=== PATIENT | female | born 1950 | race Caucasian/White ===

== ENCOUNTER 2019-12-14 14:26 | Inpatient (IN) ==
--- NOTE | 2019-12-14 14:36 | DR.NAUSEAF ---
HPI Time Seen Time Seen by Provider: 12/14/19 14:35 Primary Care Physician Primary Care Physician: DORENE VILLEDA Complaints Chief Complaint:: [place] BRINGS PT. IN WITH C/O VOMITING COFFEE GROUND EMESIS X 3 EPISODES TODAY. PT. HAS A HX. OF GI BLEED. PT. C/O ABDOMINAL PAIN. PT. WAS RECENTLY HOSPITALIZED IN [facility] WITH GI BLEED AND HAD AN EGD WHICH REVEALED EROSIVE GASTRITIS. PT. HAS BEEN ON PROTONIX 40MG PO DAILY. COVID-19 Coronavirus risk:travel/contact w/high risk person: No Has patient experienced Coronavirus symptoms: Yes Coronavirus symptoms experienced: Coughing and Shortness of Breath Reviewed Nurses Notes Reviewed: Yes Source History Provided: Patient and EMS Mode of Arrival Mode of Arrival: EMS Timing Onset of Chief Complaint: 12/14/19 Context Onset: Spontaneous Recent: denies Travel and Contact Exposure Possible Ingestion: Unknown History of: None Quality Quality: Coffee Grounds PMH PMH Past Medical History: Yes Past Medical History: COPD, Dementia, Depression, Gout and Hypertension Past Medical History Comment: GI BLEED, schizaffective disorder, chronic pain Past Surgical History: Yes Surgical History: Unknown Family History History of Family Medical Conditions: No Social History Does patient currently use any type of tobacco product: No Have you used tobacco products in the last 12 months: No Type of Tobacco Use: None Does any household member use tobacco: No Alcohol Use: None Do you use any recreational Drugs:: No Lives With: Family Lives Where: Home Travel Risk Coronavirus risk:travel/contact w/high risk person: No Has patient experienced Coronavirus symptoms: Yes Coronavirus symptoms experienced: Coughing and Shortness of Breath Infectious screening In the last 2 months have you had wt loss of >10#?: NO Have you had fever, night sweats or hemotysis?: No Have you traveled outside the country in the last 6 months?: No Isolation: Droplet ROS Review of Systems Constitutional: No Symptoms Reported Eyes: No Symptoms Reported ENTM: No Symptoms Reported Respiratoy: No Symptoms Reported Cardiovascular: No Symptoms Reported Gastrointestinal/Abdominal: Abdominal Pain, Nausea and Vomiting Genitourinary: No Symptoms Reported Neurological: No Symptoms Reported Musculoskeletal: No Symptoms Reported Integumentary: No Symptoms Reported Hematologic/Lymphatic: No Symptoms Reported Endocrine: No Symptoms Reported Psychiatric: Other (schizoaffective) All Other Systems: Reviewed and Negative PE Vital Signs Vitals: Temperature 97.5 F Pulse Rate 82 Respiratory Rate 27 Blood Pressure 85/50 O2 Sat by Pulse Oximetry 98 General Limitations: No Limitations General Appearance: Alert and In No Apparent Distress Head Head Exam: Normal Inspection, Atraumatic and Normocephalic Eyes Eye exam: Normal Appearance and EOMI ENT ENT Exam: Normal Exam and Normal Oropharynx Neck Neck Exam: Normal Inspection, Full ROM and Trachea Midline Chest Chest Inspection: Normal Inspection Respiratory Respiratory Exam: Normal Lung Sounds Bilat Respiratory Exam: Bilateral: Clear to Auscultation Cardiovascular Cardiovascular Exam: Regular Rate; negative Systolic Murmur Abdominal Exam Abdominal Exam: Normal Inspection, Soft and Tenderness; negative Distention and Guarding Abdominal Tenderness: Epigastrium Rectal Rectal Exam: Deferred External Exam: Female: Deferred : Speculum Exam (Female): Deferred : Bimanual Exam (female): Deferred Extremities Extremities Exam: Normal Inspection and Full ROM Back Back Exam: Normal Inspection Neurologic Neurological Exam: Alert and CN II-XII Intact; negative Oriented X3 Psychiatric Psychiatric Exam: Depressed Skin Skin Exam: Normal Color ROR Labs Reviewed Result Diagrams: 12/14/19 14:52 12/14/19 14:52 Laboratory: WBC 8.2 X10^3/uL (3.6-10.0) 12/14/19 14:52 RBC 3.70 X10^6/uL (3.5-5.4) 12/14/19 14:52 Hgb 10.5 g/dL (12.0-16.0) L 12/14/19 14:52 Hct 31.8 % (36.0-47.0) L 12/14/19 14:52 MCV 86.0 fL (80.0-100.0) 12/14/19 14:52 MCH 28.4 pg (27.0-34.0) 12/14/19 14:52 MCHC 33.1 g/dL (33.0-35.0) 12/14/19 14:52 RDW 19.6 % (11.6-16.5) H 12/14/19 14:52 Plt Count 220 X10^3/uL (150.0-450.0) 12/14/19 14:52 MPV 8.3 fL (7.4-11.0) 12/14/19 14:52 Neut % (Auto) 83.5 % (42.0-75.0) H 12/14/19 14:52 Lymph % (Auto) 5.5 % (21.0-51.0) L 12/14/19 14:52 [place] % (Auto) 10.7 % (0.0-13.0) 12/14/19 14:52 Eos % (Auto) 0.1 % (0.9-2.9) L 12/14/19 14:52 Baso % (Auto) 0.2 % (0.2-1.0) 12/14/19 14:52 Neut # (Auto) 6.8 x10^3/uL (2.2-4.8) H 12/14/19 14:52 Lymph # (Auto) 0.4 X10^3/uL (1.3-2.9) L 12/14/19 14:52 [place] # (Auto) 0.9 x10^3/uL (0.3-0.8) H 12/14/19 14:52 Eos # (Auto) 0.0 x10^3/uL (0.0-0.2) 12/14/19 14:52 Baso # (Auto) 0.0 X10^3/uL (0.0-0.1) 12/14/19 14:52 Absolute Nucleated RBC 0.0 /100WBC 12/14/19 14:52 Sodium 135 mmol/L (136-145) L 12/14/19 14:52 Corrected Sodium TNP 12/14/19 14:52 Potassium 4.1 mmol/L (3.5-5.1) 12/14/19 14:52 Chloride 99 mmol/L (98-107) 12/14/19 14:52 Carbon Dioxide 23.0 mmol/L (21-32) 12/14/19 14:52 BUN 34 mg/dL (7-18) H 12/14/19 14:52 Creatinine 2.85 mg/dL (0.55-1.02) H 12/14/19 14:52 Est GFR (MDRD) Af Amer 21 (>60) L 12/14/19 14:52 Est GFR (MDRD) Non-Af 17 (>60) L 12/14/19 14:52 Glucose 96 mg/dL (65-99) 12/14/19 14:52 Calcium 9.3 mg/dL (8.5-10.1) 12/14/19 14:52 Corrected Calcium 9.9 mg/dL (8.5-10.1) 12/14/19 14:52 Total Bilirubin 0.60 mg/dL (0.2-1.0) 12/14/19 14:52 AST 114 Units/L (15-37) H 12/14/19 14:52 ALT 57 Units/L (12-78) 12/14/19 14:52 Alkaline Phosphatase 77 Units/L (46-116) 12/14/19 14:52 Creatine Kinase 1387 Units/L (26-192) H 12/14/19 14:52 CK-MB (CK-2) 4.2 ng/mL (0-4.0) H* 12/14/19 14:52 CK/CKMB % Calc 0.3 % (<4) 12/14/19 14:52 Troponin I < 0.02 ng/mL (0-1.5) 12/14/19 14:52 C-Reactive Protein 63.70 mg/L (0-3.0) H 12/14/19 14:52 Total Protein 7.3 g/dL (6.4-8.2) 12/14/19 14:52 Albumin 3.3 g/dL (3.4-5.0) L 12/14/19 14:52 Globulin 4.0 g/dL (2.5-4.5) 12/14/19 14:52 Albumin/Globulin Ratio 0.8 Ratio (1.1-2.1) L 12/14/19 14:52 Specimen Type Catherized urine 12/14/19 16:30 Urine Color Yellow (YELLOW) 12/14/19 16:30 Urine Appearance Clear (CLEAR) 12/14/19 16:30 Urine pH 5.0 (5.0 - 8.0) 12/14/19 16:30 Ur Specific [place] 1.020 (1.000-1.030) 12/14/19 16:30 Urine Protein Negative (NEGATIVE) 12/14/19 16:30 Urine Glucose (UA) Negative (NEGATIVE) 12/14/19 16:30 Urine Ketones Negative (NEGATIVE) 12/14/19 16:30 Urine Occult Blood Negative (NEGATIVE) 12/14/19 16:30 Urine Nitrite Negative (NEGATIVE) 12/14/19 16:30 Urine Bilirubin Negative (NEGATIVE) 12/14/19 16:30 Urine Urobilinogen Normal (NORMAL) 12/14/19 16:30 Ur Leukocyte Esterase Negative (NEGATIVE) 12/14/19 16:30 Stool Description Fob tube 12/14/19 16:30 Stl Occult Blood (IFOB) Positive (NEGATIVE) A 12/14/19 16:30 SARS-CoV-2 (PCR) Negative (NEGATIVE) 12/14/19 16:54 XRAY XRAY Interpreted by: Radiologist X-ray Results: chest: bilateral lower lobe infiltrate Opioid Opioid Risk Tool Age (Delfino box if 16-45): No History of Preadolescent Sexual Abuse: No Total: 0 Total Score Risk Category: Low Risk Copyright: Tera RODNEY predicting aberrant behaviors
[2019-12-14] MEDS ORDERED: NS 500 ML IV 1,000 ML IV ONE (14:41)
[2019-12-14] MEDS ORDERED: PROTONIX INJ 40 MG VIAL IVP ONE (14:43)
[2019-12-14] MEDS ORDERED: ZOFRAN INJ 4 MG VIAL IVP ONE (14:44)
[2019-12-14] MEDS ORDERED: PROTONIX INJ 40 MG VIAL ONE (14:49)
[2019-12-14] MEDS ORDERED: ZOFRAN INJ 4 MG VIAL ONE (14:49)
[2019-12-14 15:15] LABS: BASOPHILS % (AUTO) 0.2 % (0.2-1.0); EOSINOPHILS % (AUTO) 0.1 % (0.9-2.9); HEMATOCRIT 31.8 % (36.0-47.0); HEMOGLOBIN 10.5 g/dL (12.0-16.0); LYMPHOCYTES # (AUTO) 0.4 X10^3/uL (1.3-2.9); LYMPHOCYTES % (AUTO) 5.5 % (21.0-51.0); MEAN CORPUSCULAR HEMOGLOBIN 28.4 pg (27.0-34.0); MEAN CORPUSCULAR HGB CONC 33.1 g/dL (33.0-35.0); MEAN PLATELET VOLUME 8.3 fL (7.4-11.0); MONOCYTES # (AUTO) 0.9 x10^3/uL (0.3-0.8); MONOCYTES % (AUTO) 10.7 % (0.0-13.0); NEUTROPHILS # (AUTO) 6.8 x10^3/uL (2.2-4.8); NEUTROPHILS % (AUTO) 83.5 % (42.0-75.0); PLATELET COUNT 220 X10^3/uL (150.0-450.0); RED CELL DISTRIBUTION WIDTH 19.6 % (11.6-16.5); WHITE BLOOD COUNT 8.2 X10^3/uL (3.6-10.0)
[2019-12-14] MEDS ORDERED: NARCAN INJ ONE (15:16)
[2019-12-14] MEDS ORDERED: NS 1000 ML 1,000 ML ONE ×2 (15:17→18:24)
[2019-12-14 15:23] LABS: BLOOD UREA NITROGEN 34 mg/dL (7-18); CALCIUM 9.3 mg/dL (8.5-10.1); CHLORIDE 99 mmol/L (98-107); CREATININE 2.85 mg/dL (0.55-1.02); SODIUM 135 mmol/L (136-145); TROPONIN I < 0.02 ng/mL (0-1.5); eGFR NON BLACK RACES 17 (>60)
[2019-12-14] MEDS ORDERED: NARCAN INJ IVP ONE (15:24)
[2019-12-14 15:43] LABS: ALANINE AMINOTRANSFERASE 57 Units/L (12-78); ALBUMIN 3.3 g/dL (3.4-5.0); ALKALINE PHOSPHATASE 77 Units/L (46-116); ASPARTATE AMINO TRANSFERASE 114 Units/L (15-37); COR CA(FOR HYPOALB) 9.9 mg/dL (8.5-10.1); TOTAL PROTEIN 7.3 g/dL (6.4-8.2)
[2019-12-14 15:44] LABS: CKMB % 0.3 % (<4); CREATINE KINASE 1387 Units/L (26-192)
[2019-12-14 15:45] LABS: CREATINE KINASE MB 4.2 ng/mL (0-4.0)
--- NOTE | 2019-12-14 15:50 | RAD ---
HISTORYgi bleed, epigastric pain, hypotensive htn, copdSTUDYACUTE ABDOMEN SERIESCOMPARISONChest x-ray dated 09/12/2019FINDINGSChestBorderline heart size. There are new bilateral patchy ground-glass and alveolar radiopacity suspicious for viral pneumonia. No evidence of effusion or pneumothoraxAbdomenThere is no evidence of free air, no significant air-fluid levels, patient is status post cholecystectomy t,here is increases stool throughout the colo,n there are some air containing small bowel loops in the right mid abdomen without significant dilatation. Osseus structures demonstrate no significant abnormalitiesIMPRESSIONBilateral lower lobe alveolar and reticular infiltrates suspicious for viral pneumoniaModerate constipation with some nonspecific air containing small bowel loops,no free air or significant air-fluid levels.Electronically signed by: Lianna Patrick (Dec 14, 2019 15:49:06)
[2019-12-14 16:51] LABS: BILIRUBIN,URINE NEGATIVE (NEGATIVE); BLOOD/HEMOGLOBIN,URINE NEGATIVE (NEGATIVE); GLUCOSE, URINE NEGATIVE (NEGATIVE); KETONES,URINE NEGATIVE (NEGATIVE); LEUKOCYTE ESTERASE ,URINE NEGATIVE (NEGATIVE); NITRITES,URINE NEGATIVE (NEGATIVE); PROTEIN,URINE NEGATIVE (NEGATIVE); UROBILINOGEN,URINE NORMAL (NORMAL)
[2019-12-14 16:59] LABS: APPEARANCE,URINE CLEAR (CLEAR); COLOR,URINE YELLOW (YELLOW)
[2019-12-14] MEDS ORDERED: NS 1000 ML 1,000 ML IV ONE (18:25)
[2019-12-14 19:27] LABS: ABG HCO3 19.6 mmol/L (22-26)
[2019-12-14 19:28] LABS: ABG ALLEN TEST POS
[2019-12-14] MEDS ORDERED: DUONEB 0.5 MG/3 MG (3 mL) NEB PRN (23:39)
[2019-12-15 02:10] VITALS: BMI 31.8
[2019-12-15 06:09] LABS: BASOPHILS % (AUTO) 0.1 % (0.2-1.0); EOSINOPHILS # (AUTO) 0.1 x10^3/uL (0.0-0.2); EOSINOPHILS % (AUTO) 0.6 % (0.9-2.9); HEMATOCRIT 28.9 % (36.0-47.0); HEMOGLOBIN 9.5 g/dL (12.0-16.0); LYMPHOCYTES # (AUTO) 0.8 X10^3/uL (1.3-2.9); LYMPHOCYTES % (AUTO) 6.8 % (21.0-51.0); MEAN CORPUSCULAR HGB CONC 32.8 g/dL (33.0-35.0); MEAN CORPUSCULAR VOLUME 85.4 fL (80.0-100.0); MEAN PLATELET VOLUME 7.8 fL (7.4-11.0); MONOCYTES # (AUTO) 0.8 x10^3/uL (0.3-0.8); NEUTROPHILS # (AUTO) 10.3 x10^3/uL (2.2-4.8); NEUTROPHILS % (AUTO) 85.5 % (42.0-75.0); PLATELET COUNT 201 X10^3/uL (150.0-450.0); RED BLOOD COUNT 3.38 X10^6/uL (3.5-5.4); RED CELL DISTRIBUTION WIDTH 19.2 % (11.6-16.5); WHITE BLOOD COUNT 12.1 X10^3/uL (3.6-10.0)
[2019-12-15 06:35] LABS: ALANINE AMINOTRANSFERASE 40 Units/L (12-78); ALBUMIN 2.8 g/dL (3.4-5.0); ALKALINE PHOSPHATASE 63 Units/L (46-116); ASPARTATE AMINO TRANSFERASE 66 Units/L (15-37); BLOOD UREA NITROGEN 30 mg/dL (7-18); CALCIUM 8.8 mg/dL (8.5-10.1); CARBON DIOXIDE 20.7 mmol/L (21-32); CHLORIDE 104 mmol/L (98-107); CKMB % 0.3 % (<4); COR CA(FOR HYPOALB) 9.8 mg/dL (8.5-10.1); CREATINE KINASE 680 Units/L (26-192); CREATINE KINASE MB 2.2 ng/mL (0-4.0); CREATININE 1.76 mg/dL (0.55-1.02); SODIUM 138 mmol/L (136-145); TOTAL PROTEIN 6.7 g/dL (6.4-8.2); TROPONIN I < 0.02 ng/mL (0-1.5); eGFR NON BLACK RACES 31 (>60)
[2019-12-15] MEDS ORDERED: NS 1000 ML 1,000 ML IV ONE (09:09)
[2019-12-15] MEDS ORDERED: NS 1000 ML 1,000 ML ONE (09:14)
[2019-12-15] MEDS: PROTONIX INJ 40 MG VIAL IVP SCH (09:21)
[2019-12-15] MEDS ORDERED: COLACE CAP 100 MG PO ONE (09:47)
[2019-12-15] MEDS: NS 1000 ML 1,000 ML IV SCH ×2 (10:26→17:47)
[2019-12-15] MEDS: ZYLOPRIM PO SCH ×2 (10:26→20:37)
[2019-12-15] MEDS ORDERED: LINZESS PO ONE (11:00)
--- NOTE | 2019-12-15 13:26 | RAD ---
HISTORYGI BLEED, R/O INFECTIONSTUDYCHEST, 1 VIEWCOMPARISONNoneTECHNIQUEAP view of the chestFINDINGSCardiac and mediastinal contours appear normal. Mild scattered bilateral airspace and interstitial opacities. No pleural effusion or pneumothorax. Soft tissue attenuation limits evaluation..IMPRESSIONMild scattered airspace and interstitial opacities can be seen with atypical pneumonia.Electronically signed by: Simon Che (Dec 15, 2019 13:26:47)
[2019-12-15] MEDS ORDERED: ZITHROMAX TAB 250 MG PO ONE (13:33)
[2019-12-15] MEDS: DUONEB 0.5 MG/3 MG (3 mL) NEB SCH ×3 (13:44→21:22)
[2019-12-15] MEDS: ROCEPHIN VIAL 1 GRAM 1 G in NS 100 ML IV + SPIKE MINIBAG* 100 ML IV SCH (13:58)
[2019-12-15] MEDS: ABILIFY PO SCH (20:36)
[2019-12-15] MEDS: NEURONTIN CAP 400 MG PO SCH (20:37)
[2019-12-15] MEDS: SINGULAIR TAB 10 MG PO SCH (20:37)
[2019-12-15] MEDS ORDERED: SALINE 0.9% 3 ML NEB TX ONE (20:43)
[2019-12-15] MEDS: ROBITUSSIN DM PO PRN (21:20)
[2019-12-15] MEDS: PATIENT'S HOME MEDICATION (Budesonide-Formoterol 2 PUFF) IN SCH (21:22)
[2019-12-16] MEDS: NS 1000 ML 1,000 ML IV SCH ×3 (02:10→18:14)
[2019-12-16 06:22] LABS: BASOPHILS % (AUTO) 0.3 % (0.2-1.0); EOSINOPHILS # (AUTO) 0.2 x10^3/uL (0.0-0.2); EOSINOPHILS % (AUTO) 1.6 % (0.9-2.9); HEMATOCRIT 25.1 % (36.0-47.0); HEMOGLOBIN 8.4 g/dL (12.0-16.0); LYMPHOCYTES # (AUTO) 1.1 X10^3/uL (1.3-2.9); LYMPHOCYTES % (AUTO) 8.7 % (21.0-51.0); MEAN CORPUSCULAR HEMOGLOBIN 28.8 pg (27.0-34.0); MEAN CORPUSCULAR HGB CONC 33.4 g/dL (33.0-35.0); MEAN CORPUSCULAR VOLUME 86.2 fL (80.0-100.0); MEAN PLATELET VOLUME 8.3 fL (7.4-11.0); MONOCYTES # (AUTO) 0.8 x10^3/uL (0.3-0.8); MONOCYTES % (AUTO) 6.3 % (0.0-13.0); NEUTROPHILS # (AUTO) 10.3 x10^3/uL (2.2-4.8); NEUTROPHILS % (AUTO) 83.1 % (42.0-75.0); PLATELET COUNT 171 X10^3/uL (150.0-450.0); RED BLOOD COUNT 2.91 X10^6/uL (3.5-5.4); RED CELL DISTRIBUTION WIDTH 20.1 % (11.6-16.5); WHITE BLOOD COUNT 12.4 X10^3/uL (3.6-10.0)
[2019-12-16 06:25] LABS: ALANINE AMINOTRANSFERASE 26 Units/L (12-78); ALBUMIN 2.3 g/dL (3.4-5.0); ALKALINE PHOSPHATASE 68 Units/L (46-116); ASPARTATE AMINO TRANSFERASE 36 Units/L (15-37); BLOOD UREA NITROGEN 17 mg/dL (7-18); CALCIUM 8.1 mg/dL (8.5-10.1); CARBON DIOXIDE 20.8 mmol/L (21-32); CHLORIDE 110 mmol/L (98-107); COR CA(FOR HYPOALB) 9.5 mg/dL (8.5-10.1); CREATININE 1.06 mg/dL (0.55-1.02); SODIUM 144 mmol/L (136-145); TOTAL PROTEIN 6.1 g/dL (6.4-8.2); eGFR NON BLACK RACES 55 (>60)
--- NOTE | 2019-12-16 06:37 | RAD ---
HISTORYConstipationSTUDYAbdomen series with chest four [id number]/01/2020FINDINGSStable heart size. Ill-defined pulmonary infiltrates have improved slightly. Supine and erect views of abdomen demonstrate moderate gaseous dilatation of small and large bowel. No free air, pneumatosis, ascites or mass formation seen.IMPRESSIONBilateral pulmonary infiltrates concerning for atypical pneumonia. Intestinal gas pattern described is most likely a reflex ileus, although a developing obstruction could produce similar findings. Continued follow-up suggested as appropriate.Electronically signed by: JOSE ERNANDEZ (Dec 16, 2019 06:36:56)
[2019-12-16 07:23] LABS: ANISOCYTOSIS 1+; PLATELET MORPHOLOGY COMMENT NORMAL (NORMAL)
[2019-12-16] MEDS: DUONEB 0.5 MG/3 MG (3 mL) NEB SCH ×4 (09:07→20:35)
[2019-12-16] MEDS: NEURONTIN CAP 400 MG PO SCH ×2 (09:46→21:05)
[2019-12-16] MEDS: PROTONIX INJ 40 MG VIAL IVP SCH (09:46)
[2019-12-16] MEDS: EFFEXOR XR 150 MG CAP 24-HR PO SCH (09:46)
[2019-12-16] MEDS: ROCEPHIN VIAL 1 GRAM 1 G in NS 100 ML IV + SPIKE MINIBAG* 100 ML IV SCH (09:47)
[2019-12-16] MEDS: ZYLOPRIM PO SCH ×2 (09:47→21:05)
[2019-12-16] MEDS: ZITHROMAX TAB 250 MG PO SCH (09:47)
[2019-12-16] MEDS: PATIENT'S HOME MEDICATION (Budesonide-Formoterol 2 PUFF) IN SCH (09:49)
--- NOTE | 2019-12-16 12:19 | PCM.PROG ---
Progress Note Progress Note for Day of Date of Exam: 12/16/19 Subjective Subjective: Patient seen at bedside, no overnight events. She states she feels better this morning. She is currently admitted for dehydration, constipation and COPDE. She did have BM's after getting enemas. She is currently on 2L NC and reports her breathing is better. She does not use O2 at home but states she was told in the past that she might need O2. She is anemic, was recently admitted in [place] and received blood transfusions. Denies active bleeding. Labs: Hgb 8.4 from 9.5, WBC 12.4 BUN/Cr: 17/1.06 FOBT + COVID (-) KUB: suggestive of ileus, follow up recommended CXR: concerning for atypical pneumoinia Plan: Rocephin/Azithro were added yesterday due to concerning for pneumonia, will add solumedrol due to wheezing on exam. Continue duonebs and pulmicort. Repeat KUB in the AM. Wean O2 as tolerated, will need walk test to determine if she needs home O2. Decrease IVF to 100cc/hr. Monitor AM labs. Ambulate as tolerated. Past Medical Family Social History Past Med/Fam/Surg Hx: Changes noted (describe) Allergies: Allergies Sulfa (Sulfonamide Antibiotics) [SULFA] Allergy (Verified 12/14/19 14:46) Review of Systems ROS: Changes notes (describe) Vital Signs and I&O's Vital Signs: Temperature 99.2 F Pulse Rate [Left] 93 Pulse Rate 98 Respiratory Rate 20 Blood Pressure [Right Arm] 136/63 Blood Pressure [Left Arm] 146/70 Blood Pressure 93/49 O2 Sat by Pulse Oximetry 97 Intake and Output: Intake & Output 12/13/19 12/14/19 12/15/19 12/16/19 23:59 23:59 23:59 23:59 Intake Total 0 / 0 3627 / 3627 1100 / 1100 Output Total 1000 / 1000 2725 / 2725 500 / 500 Balance -1000 / -1000 902 / 902 600 / 600 Physical Exam Oriented: Normal Eyes: Normal Ear: Normal Respiratory: Generalized and Wheezes Cardiovascular: Normal Auscultation: Bowel Sounds: Normal Tenderness: Normal Skin: Decreased Turgur Musculoskeletal: Normal Psychiatric: Normal Mood Description: Calm Affect: Normal Speech Pattern: Clear and Appropriate Laboratory and Diagnostics Result Diagrams: 10/03/20 05:30 12/16/19 05:30 Labs: Laboratory WBC 12.4 X10^3/uL (3.6-10.0) H 12/16/19 05:30 RBC 2.91 X10^6/uL (3.5-5.4) L 12/16/19 05:30 Hgb 8.4 g/dL (12.0-16.0) L 12/16/19 05:30 Hct 25.1 % (36.0-47.0) L 12/16/19 05:30 MCV 86.2 fL (80.0-100.0) 12/16/19 05:30 MCH 28.8 pg (27.0-34.0) 12/16/19 05:30 MCHC 33.4 g/dL (33.0-35.0) 12/16/19 05:30 RDW 20.1 % (11.6-16.5) H 12/16/19 05:30 Plt Count 171 X10^3/uL (150.0-450.0) 12/16/19 05:30 Plt Count Comment Adequate (ADEQUATE) 12/16/19 05:30 MPV 8.3 fL (7.4-11.0) 12/16/19 05:30 Neut % (Auto) 83.1 % (42.0-75.0) H 12/16/19 05:30 Lymph % (Auto) 8.7 % (21.0-51.0) L 12/16/19 05:30 [place] % (Auto) 6.3 % (0.0-13.0) 12/16/19 05:30 Eos % (Auto) 1.6 % (0.9-2.9) 12/16/19 05:30 Baso % (Auto) 0.3 % (0.2-1.0) 12/16/19 05:30 Neut # (Auto) 10.3 x10^3/uL (2.2-4.8) H 12/16/19 05:30 Lymph # (Auto) 1.1 X10^3/uL (1.3-2.9) L 12/16/19 05:30 [place] # (Auto) 0.8 x10^3/uL (0.3-0.8) 12/16/19 05:30 Eos # (Auto) 0.2 x10^3/uL (0.0-0.2) 12/16/19 05:30 Baso # (Auto) 0.0 X10^3/uL (0.0-0.1) 12/16/19 05:30 Absolute Nucleated RBC 0.0 /100WBC 12/16/19 05:30 Plt Morphology Comment Normal (NORMAL) 12/16/19 05:30 RBC Morphology Abnormal (NORMAL) A 12/16/19 05:30 Anisocytosis 1+ A 12/16/19 05:30 Sample Site Rr 12/14/19 19:20 ABG pH 7.320 (7.35-7.45) L 12/14/19 19:20 ABG pCO2 38.0 mmHg (35.0-45.0) 12/14/19 19:20 ABG pO2 50.0 mmHg (80.0-100.0) L 12/14/19 19:20 ABG HCO3 19.6 mmol/L (22-26) L 12/14/19 19:20 ABG O2 Saturation 81.0 % (90-100) L* 12/14/19 19:20 ABG Base Excess -6.0 mmol/L (-2.0-2.0) L 12/14/19 19:20 Julián Test Pos 12/14/19 19:20 A-a Gradient 102.0 mmHg 12/14/19 19:20 FiO2 28.0 12/14/19 19:20 Blood Gas Comments Sat on monitor 96% 12/14/19 19:20 Sodium 144 mmol/L (136-145) 12/16/19 05:30 Corrected Sodium TNP 12/16/19 05:30 Potassium 3.6 mmol/L (3.5-5.1) 12/16/19 05:30 Chloride 110 mmol/L (98-107) H 12/16/19 05:30 Carbon Dioxide 20.8 mmol/L (21-32) L 12/16/19 05:30 BUN 17 mg/dL (7-18) 12/16/19 05:30 Creatinine 1.06 mg/dL (0.55-1.02) H 12/16/19 05:30 Est GFR (MDRD) Af Amer > 60 (>60) 12/16/19 05:30 Est GFR (MDRD) Non-Af 55 (>60) L 12/16/19 05:30 Glucose 75 mg/dL (65-99) 12/16/19 05:30 Calcium 8.1 mg/dL (8.5-10.1) L 12/16/19 05:30 Corrected Calcium 9.5 mg/dL (8.5-10.1) 12/16/19 05:30 Total Bilirubin 0.30 mg/dL (0.2-1.0) 12/16/19 05:30 AST 36 Units/L (15-37) 12/16/19 05:30 ALT 26 Units/L (12-78) 12/16/19 05:30 Alkaline Phosphatase 68 Units/L (46-116) 12/16/19 05:30 Creatine Kinase 680 Units/L (26-192) H 12/15/19 05:35 CK-MB (CK-2) 2.2 ng/mL (0-4.0) 12/15/19 05:35 CK/CKMB % Calc 0.3 % (<4) 12/15/19 05:35 Troponin I < 0.02 ng/mL (0-1.5) 12/15/19 05:35 C-Reactive Protein 63.70 mg/L (0-3.0) H 12/14/19 14:52 Total Protein 6.1 g/dL (6.4-8.2) L 12/16/19 05:30 Albumin 2.3 g/dL (3.4-5.0) L 12/16/19 05:30 Globulin 3.8 g/dL (2.5-4.5) 12/16/19 05:30 Albumin/Globulin Ratio 0.6 Ratio (1.1-2.1) L 12/16/19 05:30 Specimen Type Catherized urine 12/14/19 16:30 Urine Color Yellow (YELLOW) 12/14/19 16:30 Urine Appearance Clear (CLEAR) 12/14/19 16:30 Urine pH 5.0 (5.0 - 8.0) 12/14/19 16:30 Ur Specific [place] 1.020 (1.000-1.030) 12/14/19 16:30 Urine Protein Negative (NEGATIVE) 12/14/19 16:30 Urine Glucose (UA) Negative (NEGATIVE) 12/14/19 16:30 Urine Ketones Negative (NEGATIVE) 12/14/19 16:30 Urine Occult Blood Negative (NEGATIVE) 12/14/19 16:30 Urine Nitrite Negative (NEGATIVE) 12/14/19 16:30 Urine Bilirubin Negative (NEGATIVE) 12/14/19 16:30 Urine Urobilinogen Normal (NORMAL) 12/14/19 16:30 Ur Leukocyte Esterase Negative (NEGATIVE) 12/14/19 16:30 Stool Description Fob tube 12/14/19 16:30 Stl Occult Blood (IFOB) Positive (NEGATIVE) A 12/14/19 16:30 SARS-CoV-2 (PCR) Negative (NEGATIVE) 12/14/19 16:54
[2019-12-16] MEDS: SOLU-Medrol 125 MG VIAL IVP SCH ×2 (12:56→21:05)
[2019-12-16] MEDS: PULMICORT NEB TX 0.5 MG NEB SCH ×2 (15:02→20:35)
[2019-12-16] MEDS: ROBITUSSIN DM PO PRN (19:44)
[2019-12-16] MEDS: SINGULAIR TAB 10 MG PO SCH (21:05)
[2019-12-16] MEDS: ABILIFY PO SCH (21:05)
[2019-12-17] MEDS: NS 1000 ML 1,000 ML IV SCH (02:04)
[2019-12-17] MEDS: ROBITUSSIN DM PO PRN ×2 (02:10→09:34)
[2019-12-17 06:47] LABS: BLOOD UREA NITROGEN 9 mg/dL (7-18); CALCIUM 8.3 mg/dL (8.5-10.1); CARBON DIOXIDE 18.4 mmol/L (21-32); CHLORIDE 108 mmol/L (98-107); COR NA(FOR HYPERGLY) 142 mmol/L (136-145); CREATININE 0.94 mg/dL (0.55-1.02); SODIUM 141 mmol/L (136-145); eGFR NON BLACK RACES > 60 (>60)
[2019-12-17 06:54] LABS: BASOPHILS % (AUTO) 0.1 % (0.2-1.0); HEMATOCRIT 25.3 % (36.0-47.0); HEMOGLOBIN 8.5 g/dL (12.0-16.0); LYMPHOCYTES # (AUTO) 0.6 X10^3/uL (1.3-2.9); LYMPHOCYTES % (AUTO) 5.8 % (21.0-51.0); MEAN CORPUSCULAR HGB CONC 33.8 g/dL (33.0-35.0); MEAN PLATELET VOLUME 8.3 fL (7.4-11.0); MONOCYTES # (AUTO) 0.4 x10^3/uL (0.3-0.8); MONOCYTES % (AUTO) 3.8 % (0.0-13.0); NEUTROPHILS # (AUTO) 9.6 x10^3/uL (2.2-4.8); NEUTROPHILS % (AUTO) 90.3 % (42.0-75.0); PLATELET COUNT 186 X10^3/uL (150.0-450.0); RED BLOOD COUNT 2.94 X10^6/uL (3.5-5.4); RED CELL DISTRIBUTION WIDTH 20.3 % (11.6-16.5); WHITE BLOOD COUNT 10.7 X10^3/uL (3.6-10.0)
[2019-12-17 08:40] LABS: ANISOCYTOSIS 1+; BAND NEUTROPHILS % 9 % (0-10); PLATELET MORPHOLOGY COMMENT NORMAL (NORMAL)
[2019-12-17] MEDS: PULMICORT NEB TX 0.5 MG NEB SCH (09:30)
[2019-12-17] MEDS: NEURONTIN CAP 400 MG PO SCH (09:30)
[2019-12-17] MEDS: DUONEB 0.5 MG/3 MG (3 mL) NEB SCH (09:30)
[2019-12-17] MEDS: EFFEXOR XR 150 MG CAP 24-HR PO SCH (09:30)
[2019-12-17] MEDS: ZITHROMAX TAB 250 MG PO SCH (09:31)
[2019-12-17] MEDS: PROTONIX INJ 40 MG VIAL IVP SCH (09:32)
[2019-12-17] MEDS: ZYLOPRIM PO SCH (09:32)
[2019-12-17] MEDS: ROCEPHIN VIAL 1 GRAM 1 G in NS 100 ML IV + SPIKE MINIBAG* 100 ML IV SCH (09:33)
[2019-12-17] MEDS: SOLU-Medrol 125 MG VIAL IVP SCH (09:33)
[2019-12-17] MEDS ORDERED: ZESTRIL TAB 40 MG PO SCH (11:00)
[2019-12-17 13:31] VITALS: BP 146/78
--- NOTE | 2019-12-19 16:27 | W.DIS.FURT ---
Summary of Discharge Discharge Summary of Date Date of Exam: 12/17/19 Admission Date Date of Admission: 12/14/19 Admission Diagnosis Patient Problems (Updated 12/19/19 @ 16:32 by Vanna Kumar) Dehydration (Acute) E86.0 Acute renal failure (Acute) N17.9 Constipation (Acute) K59.00 Pneumonia (Acute) J18.9 Sinusitis (Acute) J32.9 Abdominal pain (Acute) R10.9 Hospital Course: Ms. Underwood presented with abdominal pain, nausea and vomiting, decreased alertness, and low blood pressure. She has a hx of anemia requiring blood transfusions with recent admission in [place]. She also has a hx of COPD not on oxygen. On admission patient was noted to be dehydrated and received IV fluids. She was also requiring 2L O2. CXR concerning for pneumonia. COVID test was negative. KUB showed constipation. She was given multiple doses of stool softners and enemas. Patient has everal BMs. She was also started on Rocephin/Azithro and solumedrol for COPD exacerbation. She was tolerating oral intake, no N/V/ abdominal pain. Her labs were monitored daily, her hgb remained stable and did not require transfusion. She was off oxygen and remained stable on room air. RT did the walk test and patient did not require oxygen. She was stable for discharge. She will follow up with PCP in 3-5 days. Vital Signs: Vital Signs (72 hours) 12/16/19 20:00 12/17/19 00:00 12/17/19 04:00 Temperature 98.4 F 98.5 F 98.4 F Pulse Rate Pulse Rate [Left] 114 H 114 H 97 H Respiratory Rate 23 26 H 24 Blood Pressure [Right Arm] 163/78 174/91 160/86 O2 Sat by Pulse Oximetry 97 98 97 12/17/19 08:00 12/17/19 09:30 12/17/19 12:00 Temperature 97.9 F 98.4 F Pulse Rate 97 H Pulse Rate [Left] 89 99 H Respiratory Rate 20 18 Blood Pressure [Right Arm] 164/78 146/78 O2 Sat by Pulse Oximetry 94 L 95 93 L Labs: Laboratory Last Values WBC 10.7 X10^3/uL (3.6-10.0) H 12/17/19 05:54 RBC 2.94 X10^6/uL (3.5-5.4) L 12/17/19 05:54 Hgb 8.5 g/dL (12.0-16.0) L 12/17/19 05:54 Hct 25.3 % (36.0-47.0) L 12/17/19 05:54 MCV 86.0 fL (80.0-100.0) 12/17/19 05:54 MCH 29.0 pg (27.0-34.0) 12/17/19 05:54 MCHC 33.8 g/dL (33.0-35.0) 12/17/19 05:54 RDW 20.3 % (11.6-16.5) H 12/17/19 05:54 Plt Count 186 X10^3/uL (150.0-450.0) 12/17/19 05:54 Plt Count Comment Adequate (ADEQUATE) 12/17/19 05:54 MPV 8.3 fL (7.4-11.0) 12/17/19 05:54 Neut % (Auto) 90.3 % (42.0-75.0) H 12/17/19 05:54 Lymph % (Auto) 5.8 % (21.0-51.0) L 12/17/19 05:54 [place] % (Auto) 3.8 % (0.0-13.0) 12/17/19 05:54 Eos % (Auto) 0.0 % (0.9-2.9) L 12/17/19 05:54 Baso % (Auto) 0.1 % (0.2-1.0) L 12/17/19 05:54 Neut # (Auto) 9.6 x10^3/uL (2.2-4.8) H 12/17/19 05:54 Lymph # (Auto) 0.6 X10^3/uL (1.3-2.9) L 12/17/19 05:54 [place] # (Auto) 0.4 x10^3/uL (0.3-0.8) 12/17/19 05:54 Eos # (Auto) 0.0 x10^3/uL (0.0-0.2) 12/17/19 05:54 Baso # (Auto) 0.0 X10^3/uL (0.0-0.1) 12/17/19 05:54 Absolute Nucleated RBC 0.0 /100WBC 12/17/19 05:54 Total Counted 100 12/17/19 05:54 Neutrophils % (Manual) 79 % (39-76) H 12/17/19 05:54 Band Neutrophils % 9 % (0-10) 12/17/19 05:54 Lymphocytes % (Manual) 8 % (13-43) L 12/17/19 05:54 Monocytes % (Manual) 4 % (4-9) 12/17/19 05:54 Plt Morphology Comment Normal (NORMAL) 12/17/19 05:54 RBC Morphology Abnormal (NORMAL) A 12/17/19 05:54 Anisocytosis 1+ A 12/17/19 05:54 Sample Site Rr 12/14/19 19:20 ABG pH 7.320 (7.35-7.45) L 12/14/19 19:20 ABG pCO2 38.0 mmHg (35.0-45.0) 12/14/19 19:20 ABG pO2 50.0 mmHg (80.0-100.0) L 12/14/19 19:20 ABG HCO3 19.6 mmol/L (22-26) L 12/14/19 19:20 ABG O2 Saturation 81.0 % (90-100) L* 12/14/19 19:20 ABG Base Excess -6.0 mmol/L (-2.0-2.0) L 12/14/19 19:20 Julián Test Pos 12/14/19 19:20 A-a Gradient 102.0 mmHg 12/14/19 19:20 FiO2 28.0 12/14/19 19:20 Blood Gas Comments Sat on monitor 96% 12/14/19 19:20 Sodium 141 mmol/L (136-145) 12/17/19 05:54 Corrected Sodium 142 mmol/L (136-145) 12/17/19 05:54 Potassium 3.6 mmol/L (3.5-5.1) 12/17/19 05:54 Chloride 108 mmol/L (98-107) H 12/17/19 05:54 Carbon Dioxide 18.4 mmol/L (21-32) L 12/17/19 05:54 BUN 9 mg/dL (7-18) 12/17/19 05:54 Creatinine 0.94 mg/dL (0.55-1.02) 12/17/19 05:54 Est GFR (MDRD) Af Amer > 60 (>60) 12/17/19 05:54 Est GFR (MDRD) Non-Af > 60 (>60) 12/17/19 05:54 Glucose 162 mg/dL (65-99) H 12/17/19 05:54 Calcium 8.3 mg/dL (8.5-10.1) L 12/17/19 05:54 Corrected Calcium 9.5 mg/dL (8.5-10.1) 12/16/19 05:30 Total Bilirubin 0.30 mg/dL (0.2-1.0) 12/16/19 05:30 AST 36 Units/L (15-37) 12/16/19 05:30 ALT 26 Units/L (12-78) 12/16/19 05:30 Alkaline Phosphatase 68 Units/L (46-116) 12/16/19 05:30 Creatine Kinase 680 Units/L (26-192) H 12/15/19 05:35 CK-MB (CK-2) 2.2 ng/mL (0-4.0) 12/15/19 05:35 CK/CKMB % Calc 0.3 % (<4) 12/15/19 05:35 Troponin I < 0.02 ng/mL (0-1.5) 12/15/19 05:35 C-Reactive Protein 63.70 mg/L (0-3.0) H 12/14/19 14:52 Total Protein 6.1 g/dL (6.4-8.2) L 12/16/19 05:30 Albumin 2.3 g/dL (3.4-5.0) L 12/16/19 05:30 Globulin 3.8 g/dL (2.5-4.5) 12/16/19 05:30 Albumin/Globulin Ratio 0.6 Ratio (1.1-2.1) L 12/16/19 05:30 Specimen Type Catherized urine 12/14/19 16:30 Urine Color Yellow (YELLOW) 12/14/19 16:30 Urine Appearance Clear (CLEAR) 12/14/19 16:30 Urine pH 5.0 (5.0 - 8.0) 12/14/19 16:30 Ur Specific [place] 1.020 (1.000-1.030) 12/14/19 16:30 Urine Protein Negative (NEGATIVE) 12/14/19 16:30 Urine Glucose (UA) Negative (NEGATIVE) 12/14/19 16:30 Urine Ketones Negative (NEGATIVE) 12/14/19 16:30 Urine Occult Blood Negative (NEGATIVE) 12/14/19 16:30 Urine Nitrite Negative (NEGATIVE) 12/14/19 16:30 Urine Bilirubin Negative (NEGATIVE) 12/14/19 16:30 Urine Urobilinogen Normal (NORMAL) 12/14/19 16:30 Ur Leukocyte Esterase Negative (NEGATIVE) 12/14/19 16:30 Stool Description Fob tube 12/14/19 16:30 Stl Occult Blood (IFOB) Positive (NEGATIVE) A 12/14/19 16:30 SARS-CoV-2 (PCR) Negative (NEGATIVE) 12/14/19 16:54 Reason For Visit: dehydration,pneumonia,gi bleed Discharge Date Discharge Date: 12/17/19 Discharge Diagnosis All Active Problems (Updated 12/19/19 @ 16:32 by Vanna Kumar) Dehydration (Acute) Acute renal failure (Acute) Constipation (Acute) Pneumonia (Acute) Sinusitis (Acute) Abdominal pain (Acute) Plan of Treatment: Continue with present treatment and follow up plan. Pt is to keep follow up appointment as instructed and take medications as ordered. Discharge Medications Discharge Medications: Sulfa (Sulfonamide Antibiotics) [SULFA] Allergy (Verified 12/14/19 14:46) CONTINUE taking the following medications allopurinol [Zyloprim] 100 mg PO BID 12/15/19 [History] aripiprazole 5 mg PO HS 12/15/19 [History] budesonide-formoterol [Symbicort] 2 puff INHALATION BID 12/15/19 [History] cyclobenzaprine 10 mg PO Q8H PRN 12/15/19 [History] dexlansoprazole [Dexilant] 60 mg PO DAILY 12/15/19 [History] gabapentin 400 mg PO BID 12/15/19 [History] lisinopril 40 mg PO DAILY 12/15/19 [History] montelukast 10 mg PO HS 12/15/19 [History] [id number]-pmxl-sadqa acid [Sentry] 1 tab PO DAILY 12/15/19 [History] pantoprazole [Protonix] 40 mg PO QAM 12/15/19 [History] promethazine 25 mg PO Q8H 12/15/19 [History] trazodone 50 mg PO HS 12/15/19 [History] venlafaxine 150 mg PO QAM 12/15/19 [History] New Prescriptions albuterol sulfate 2 puff IN Q4-6H PRN #6.7 g 12/17/19 [Rx] azithromycin 250 mg PO DAILY 3 Days #3 tab 12/17/19 [Rx] prednisone 40 mg PO DAILY 5 Days #10 tab 12/17/19 [Rx] Follow up and Referral Follow Up: 1 Week (PCP) Discharge Disposition Discharge Disposition: Home Discharge Condition: Stable
== END 2019-12-17 13:50 | disposition home health service (06) | DRG 191 ==
LOC: ER 14:26 → MED/SURG 18:10
PROVIDERS: ADMIT Obstetrics & Gynecology Obstetrics; ATTEND Obstetrics & Gynecology Obstetrics
DX: R26.89 Other abnormalities of gait and mobility; K92.1 Melena; E86.0 Dehydration; J44.1 Chronic obstructive pulmonary disease with (acute) exacerbation; Z20.828 Contact with and (suspected) exposure to other viral communicable diseases; I10 Essential (primary) hypertension; R11.2 Nausea with vomiting, unspecified; R06.02 Shortness of breath; N17.8 Other acute kidney failure; K59.09 Other constipation

== ENCOUNTER 2019-12-19 09:35 | Observation (INO) ==
--- NOTE | 2019-12-19 09:41 | DR.HTN ---
HPI Time Seen Time Seen by Provider: 12/19/19 09:40 HPI Comment HPI Comment: PATIENT IS 69YR OLD FEMALE IN ER WITH SWELLING ON FACE, INCREASING SOB, ELEVATED BP AND WHEEZING NOTED WHEN SHE WOKE UP THIS AM; Complaints Chief Complaint Doctors Comments: WOKE UP THIS AM WITH SWOLLEN FACE AND SOB, WHEEZING AND ELEVATED BP. COVID-19 Coronavirus risk:travel/contact w/high risk person: No Has patient experienced Coronavirus symptoms: No Reviewed Nurses Notes Reviewed: Yes Source History Provided: Patient and EMS Mode of Arrival Mode of Arrival: EMS Severity Severity: Moderate Context Circumstances: Spontaneous Onset History of: Hypertension Treatment of HTN Prior to Arrival: Taking meds as prescribed Associated Signs and Symptoms HTN Associated Signs and Symptoms: Weakness PMH PMH Past Medical History: COPD, Dementia, Depression, Gout and Hypertension Past Surgical History: Yes Surgical History: Appendectomy and Cholecystectomy Social History Do you use any recreational Drugs:: No ROS Review of Systems Constitutional: See HPI, Weakness and Fatigue; negative Fever Eyes: No Symptoms Reported and See HPI; negative Blurred Vision and Diplopia ENTM: See HPI and Nose Congestion; negative Ear Pain, Nose Discharge and Throat Pain Respiratoy: See HPI, Productive Cough, Short of Breath and Wheezing Cardiovascular: See HPI, Chest Pain (TIGHTNESS) and Edema Gastrointestinal/Abdominal: No Symptoms Reported, See HPI, Abdominal Pain, Nausea and Vomiting; negative Diarrhea Genitourinary: No Symptoms Reported and See HPI; negative Dysuria, Frequency and Hematuria Neurological: See HPI and Weakness; negative Headache and Dizziness Musculoskeletal: See HPI and Muscle Pain; negative Back Pain Integumentary: No Symptoms Reported and See HPI; negative Change in Color, Rash and Juandice Hematologic/Lymphatic: No Symptoms Reported and See HPI; negative Easy Bruising and Swollen Glands Endocrine: No Symptoms Reported and See HPI; negative Increased Thirst and Increased Urine Psychiatric: No Symptoms Reported and See HPI All Other Systems: Reviewed and Negative PE Vital Signs Vitals: Temperature 98.2 F Pulse Rate 91 Respiratory Rate 20 Blood Pressure [Right Arm] 146/78 Blood Pressure 148/74 O2 Sat by Pulse Oximetry 100 General Limitations: No Limitations General Appearance: Alert and In No Apparent Distress Head Head Exam: Normal Inspection Eyes Eye exam: Normal Appearance and PERRL; negative Scleral Icterus and Conjunctival Injection Pupils: Regular, Round: Bilateral and Reactive: Bilateral Sclera/Conjunctival: Normal Inspection: Bilateral ENT ENT Exam: Normal External Ear Exam; Denies Normal Oropharynx and TM's Normal Bilaterally Neck Neck Exam: Normal Inspection and Trachea Midline; negative Tenderness and Ly mphadenopathy Chest Chest Inspection: Normal Inspection and Symmetric Chest Wall Rise; negative Tenderness Respiratory Respiratory Exam: Normal Lung Sounds Bilat and Respiratory Distress; negative Accessory Muscle Use and Chest Wall Tenderness Respiratory Exam: Bilateral: Wheezing and Bilateral: Rhonchi, Left: Wheezing, Right: Wheezing, Upper: Wheezing and Lower: Wheezing and Lower: Rhonchi Cardiovascular Cardiovascular Exam: Regular Rate, Normal Rhythm and Normal Heart Sounds; negative Systolic Murmur and Diastolic Murmur Abdominal Exam Abdominal Exam: Normal Inspection, Normal Bowel Sounds and Soft; negative Tenderness Extremities Extremities Exam: Normal Inspection and Normal Capillary Refill; negative Tenderness, Edema and Calf Tenderness Back Back Exam: Normal Inspection; negative Tenderness, (R) CVA Tenderness, (L) CVA Tenderness and Paraspinal Tenderness Neurologic Neurological Exam: Alert, Oriented X3 and CN II-XII Intact; negative Motor Sensory Deficit Patient Oriented To: Person, Place and Time Cranial Nerve Exam: EOM Function (II, III, IV, ): Normal, Facial Sensation (V): Normal, Facial Palsy (VII): Normal, Gag reflex (XI): Normal and Tongue Deviation: Normal Motor Strength - LUE: 5/5 Motor Strength - RUE: 5/5 Motor Strength - LLE: 5/5 Motor Strength - RLE: 5/5 Upper Motor Neuron Exam: Babinski Sign: Normal Psychiatric Psychiatric Exam: Normal Affect and Normal Mood Skin Skin Exam: Warm, Dry, Intact and Normal Color MDM Additional Information Obtained Additional Information Obtained From: Old Records Differential Diagnosis Differential Diagnosis: CHF, Hyertension, essential and HTN encephalopathy Differential Diagnosis Comment: PNEUMONIA, SINUSITIS, UTI COURSE Treatment Treatment: SEE ORDERS. Education/Counseling Education/Counseling: Patient Educated On: Diagnosis ROR Labs Reviewed Laboratory Results Reviewed?: Yes Result Diagrams: 12/21/19 04:05 12/21/19 04:05 Laboratory: 12/19/19 10:24 Blood Blood Culture - Final 12/19/19 10:15 Blood Blood Culture - Final WBC 7.0 X10^3/uL (3.6-10.0) 12/19/19 10:15 RBC 3.54 X10^6/uL (3.5-5.4) 12/19/19 10:15 Hgb 10.0 g/dL (12.0-16.0) L 12/19/19 10:15 Hct 30.3 % (36.0-47.0) L 12/19/19 10:15 MCV 85.8 fL (80.0-100.0) 12/19/19 10:15 MCH 28.3 pg (27.0-34.0) 12/19/19 10:15 MCHC 33.0 g/dL (33.0-35.0) 12/19/19 10:15 RDW 20.0 % (11.6-16.5) H 12/19/19 10:15 Plt Count 274 X10^3/uL (150.0-450.0) 12/19/19 10:15 Plt Count Comment Adequate (ADEQUATE) 12/19/19 10:15 MPV 7.3 fL (7.4-11.0) L 12/19/19 10:15 Neut % (Auto) 55.0 % (42.0-75.0) 12/19/19 10:15 Lymph % (Auto) 28.6 % (21.0-51.0) 12/19/19 10:15 [place] % (Auto) 11.5 % (0.0-13.0) 12/19/19 10:15 Eos % (Auto) 4.6 % (0.9-2.9) H 12/19/19 10:15 Baso % (Auto) 0.3 % (0.2-1.0) 12/19/19 10:15 Neut # (Auto) 3.8 x10^3/uL (2.2-4.8) 12/19/19 10:15 Lymph # (Auto) 2.0 X10^3/uL (1.3-2.9) 12/19/19 10:15 [place] # (Auto) 0.8 x10^3/uL (0.3-0.8) 12/19/19 10:15 Eos # (Auto) 0.3 x10^3/uL (0.0-0.2) H 12/19/19 10:15 Baso # (Auto) 0.0 X10^3/uL (0.0-0.1) 12/19/19 10:15 Absolute Nucleated RBC 0.1 /100WBC 12/19/19 10:15 Total Counted 100 12/19/19 10:15 Neutrophils % (Manual) 68 % (39-76) 12/19/19 10:15 Band Neutrophils % 2 % (0-10) 12/19/19 10:15 Lymphocytes % (Manual) 24 % (13-43) 12/19/19 10:15 Monocytes % (Manual) 2 % (4-9) L 12/19/19 10:15 Eosinophils % (Manual) 4 % (0-6) 12/19/19 10:15 Plt Morphology Comment Normal (NORMAL) 12/19/19 10:15 RBC Morphology Normal (NORMAL) 12/19/19 10:15 Sodium 143 mmol/L (136-145) 12/19/19 10:15 Corrected Sodium TNP 12/19/19 10:15 Potassium 2.9 mmol/L (3.5-5.1) L* 12/19/19 10:15 Chloride 108 mmol/L (98-107) H 12/19/19 10:15 Carbon Dioxide 24.4 mmol/L (21-32) 12/19/19 10:15 BUN 10 mg/dL (7-18) 12/19/19 10:15 Creatinine 1.10 mg/dL (0.55-1.02) H 12/19/19 10:15 Est GFR (MDRD) Af Amer > 60 (>60) 12/19/19 10:15 Est GFR (MDRD) Non-Af 52 (>60) L 12/19/19 10:15 Glucose 73 mg/dL (65-99) 12/19/19 10:15 Lactic Acid 1.4 mmol/L (0.4-2.0) 12/19/19 10:15 Calcium 8.9 mg/dL (8.5-10.1) 12/19/19 10:15 Corrected Calcium 9.8 mg/dL (8.5-10.1) 12/19/19 10:15 Total Bilirubin 0.30 mg/dL (0.2-1.0) 12/19/19 10:15 AST 17 Units/L (15-37) 12/19/19 10:15 ALT 25 Units/L (12-78) 12/19/19 10:15 Alkaline Phosphatase 75 Units/L (46-116) 12/19/19 10:15 Creatine Kinase 57 Units/L (26-192) 12/19/19 10:15 CK-MB (CK-2) 1.1 ng/mL (0-4.0) 12/19/19 10:15 CK/CKMB % Calc 1.9 % (<4) 12/19/19 10:15 Troponin I < 0.02 ng/mL (0-1.5) 12/19/19 10:15 Total Protein 7.1 g/dL (6.4-8.2) 12/19/19 10:15 Albumin 2.9 g/dL (3.4-5.0) L 12/19/19 10:15 Globulin 4.2 g/dL (2.5-4.5) 12/19/19 10:15 Albumin/Globulin Ratio 0.7 Ratio (1.1-2.1) L 12/19/19 10:15 Specimen Type Clean catch urine 12/19/19 12:00 Urine Color Yellow (YELLOW) 12/19/19 12:00 Urine Appearance Slightly hazy (CLEAR) 12/19/19 12:00 Urine pH 6.0 (5.0 - 8.0) 12/19/19 12:00 Ur Specific [place] 1.010 (1.000-1.030) 12/19/19 12:00 Urine Protein Negative (NEGATIVE) 12/19/19 12:00 Urine Glucose (UA) Negative (NEGATIVE) 12/19/19 12:00 Urine Ketones Negative (NEGATIVE) 12/19/19 12:00 Urine Occult Blood Negative (NEGATIVE) 12/19/19 12:00 Urine Nitrite Negative (NEGATIVE) 12/19/19 12:00 Urine Bilirubin Negative (NEGATIVE) 12/19/19 12:00 Urine Urobilinogen Normal (NORMAL) 12/19/19 12:00 Ur Leukocyte Esterase 1+ (NEGATIVE) 12/19/19 12:00 Urine RBC 0-2 /HPF (0-3) 12/19/19 12:00 Urine WBC 0-2 /HPF (0-5) 12/19/19 12:00 Ur Squamous Epith Cells Moderate /HPF (NEGATIVE) 12/19/19 12:00 Urine Bacteria Trace /HPF (NEGATIVE) 12/19/19 12:00 Ur Culture Indicated? No/not indicated 12/19/19 12:00 SARS-CoV-2 (PCR) Negative (NEGATIVE) 12/19/19 13:27 XRAY XRAY Interpreted by: Radiologist (REPORT NOTED AND DISCUSSED WITH PATIENT.) and Self Opioid Opioid Risk Tool Age (Delfino box if 16-45): No History of Preadolescent Sexual Abuse: No Total: 0 Total Score Risk Category: Low Risk Copyright: Haley predicting aberrant behaviors Diagnosis Discharge Problem: Pneumonia Qualifiers: Pneumonia type: due to unspecified organism Laterality: right Lung location: l ower lobe of lung Qualified Code(s): J18.9 - Pneumonia, unspecified organism Sinusitis Qualifiers: Sinusitis location: unspecified location Chronicity: acute Recurrence: not specified as recurrent Qualified Code(s): J01.90 - Acute sinusitis, unspecified Abdominal pain Qualifiers: Abdominal location: generalized Qualified Code(s): R10.84 - Generalized abdominal pain Instructions Instructions: Sinusitis, Adult, Qxxk-lo-Edls Dehydration, Adult, Jxgv-hd-Xsil Abdominal Pain, Adult, Ycee-za-Lnef Rehydration, Adult Hypertension, Veli-jq-Dhda Managing Your Hypertension Community-Acquired Pneumonia, Adult, Rxxl-ym-Gvzh Forms: Precautions for COVID19 Patient Portal Social Distancing
[2019-12-19] MEDS ORDERED: CATAPRES TAB 0.1 MG PO ONE ×2 (09:56→13:26)
[2019-12-19] MEDS ORDERED: CATAPRES TAB 0.1 MG ONE ×2 (10:16→13:54)
[2019-12-19 10:33] LABS: BASOPHILS % (AUTO) 0.3 % (0.2-1.0); EOSINOPHILS # (AUTO) 0.3 x10^3/uL (0.0-0.2); EOSINOPHILS % (AUTO) 4.6 % (0.9-2.9); HEMATOCRIT 30.3 % (36.0-47.0); LYMPHOCYTES % (AUTO) 28.6 % (21.0-51.0); MEAN CORPUSCULAR HEMOGLOBIN 28.3 pg (27.0-34.0); MEAN CORPUSCULAR VOLUME 85.8 fL (80.0-100.0); MEAN PLATELET VOLUME 7.3 fL (7.4-11.0); MONOCYTES # (AUTO) 0.8 x10^3/uL (0.3-0.8); MONOCYTES % (AUTO) 11.5 % (0.0-13.0); NEUTROPHILS # (AUTO) 3.8 x10^3/uL (2.2-4.8); PLATELET COUNT 274 X10^3/uL (150.0-450.0); RED BLOOD COUNT 3.54 X10^6/uL (3.5-5.4)
--- NOTE | 2019-12-19 10:37 | RAD ---
HISTORYSOB, SWELLINGSTUDYCHEST x-ray, 1 VIEWCOMPARISONX-ray 12/15/2019FINDINGSHeart is probably normal in size on this AP portable radiograph. Vague patchy densities in the lungs may be slightly improved and could be atelectasis, pneumonia, and/or pulmonary edema. No pneumothorax or pleural effusion is seen. Patient is slightly rotated to the right.IMPRESSIONPossible slight improvement of lung opacities.Electronically signed by: Familia Moyer (Dec 19, 2019 10:37:31)
[2019-12-19 10:49] LABS: BAND NEUTROPHILS % 2 % (0-10); PLATELET MORPHOLOGY COMMENT NORMAL (NORMAL)
[2019-12-19 10:59] LABS: ALANINE AMINOTRANSFERASE 25 Units/L (12-78); ALBUMIN 2.9 g/dL (3.4-5.0); ALKALINE PHOSPHATASE 75 Units/L (46-116); ASPARTATE AMINO TRANSFERASE 17 Units/L (15-37); BLOOD UREA NITROGEN 10 mg/dL (7-18); CALCIUM 8.9 mg/dL (8.5-10.1); CARBON DIOXIDE 24.4 mmol/L (21-32); CHLORIDE 108 mmol/L (98-107); CKMB % 1.9 % (<4); COR CA(FOR HYPOALB) 9.8 mg/dL (8.5-10.1); CREATINE KINASE 57 Units/L (26-192); CREATINE KINASE MB 1.1 ng/mL (0-4.0); SODIUM 143 mmol/L (136-145); TOTAL PROTEIN 7.1 g/dL (6.4-8.2); TROPONIN I < 0.02 ng/mL (0-1.5); eGFR NON BLACK RACES 52 (>60)
[2019-12-19 11:05] LABS: LACTIC ACID 1.4 mmol/L (0.4-2.0)
[2019-12-19 12:48] LABS: BILIRUBIN,URINE NEGATIVE (NEGATIVE); BLOOD/HEMOGLOBIN,URINE NEGATIVE (NEGATIVE); GLUCOSE, URINE NEGATIVE (NEGATIVE); KETONES,URINE NEGATIVE (NEGATIVE); LEUKOCYTE ESTERASE ,URINE 1+ (NEGATIVE); NITRITES,URINE NEGATIVE (NEGATIVE); PROTEIN,URINE NEGATIVE (NEGATIVE); UROBILINOGEN,URINE NORMAL (NORMAL)
[2019-12-19 12:57] LABS: APPEARANCE,URINE SLIGHTLY HAZY (CLEAR); COLOR,URINE YELLOW (YELLOW)
[2019-12-19 12:58] LABS: BACTERIA,URINE TRACE /HPF (NEGATIVE); RBC,URINE 0-2 /HPF (0-3); SQUAMOUS EPITHELIAL CELL,UR MODERATE /HPF (NEGATIVE)
[2019-12-19] MEDS ORDERED: KLOR-CON PO ONE (13:09)
[2019-12-19] MEDS ORDERED: ROCEPHIN VIAL 1 GRAM IVP ONE (13:11)
[2019-12-19] MEDS ORDERED: KLOR-CON ONE (13:12)
[2019-12-19] MEDS ORDERED: ROCEPHIN VIAL 1 GRAM 1 G in NS 100 ML IV + SPIKE MINIBAG* 100 ML IV ONE (13:31)
[2019-12-19] MEDS ORDERED: NS 1000 ML 1,000 ML ONE (13:54)
[2019-12-19] MEDS ORDERED: ROCEPHIN VIAL 1 GRAM ONE (13:54)
[2019-12-19] MEDS ORDERED: NS 1000 ML 1,000 ML IV ONE (14:45)
--- NOTE | 2019-12-19 15:38 | CT ---
HISTORYWHEEZING, SOBSTUDYCT sinuses without IV contrastCOMPARISONNoneTECHNIQUEMultiple axial images of the paranasal sinuses were obtained without the administration of IV contrast. Coronal and sagittal reformats were performed and reviewed. Dose reduction techniques including Automated Exposure Control (AEC) and adjustment of mA and kV were utilized.FINDINGSTrace layering fluid is seen in the sphenoid sinuses and right maxillary sinus. No mucosal thickening is seen. The nasal septum is in the midline. No sanna bullosa formation is seen. Maxillary ostia are patent.There is an impacted tooth in the region of the right central or lateral incisor. There is an expansile lucent area within the maxillary ridge adjacent to this tooth. This area measures 1.8 x 1.2 cm. There are few punctate calcifications within this lucent area. It is probably a dentigerous cyst. Erodes the floor of the anterior aspect of the nose and may present as a soft tissue mass in this region on physical exam. No adjacent soft tissue edema is seen in the lip.IMPRESSIONTiny amount of fluid is seen in the paranasal sinuses without significant sinusitis changes.A 1.8 x 1.2 cm expansile cystic lesion is seen associated with an impacted right maxillary central or lateral incisor tooth. It is probably a dentigerous cyst. This has cortical breakthrough superiorly and extends slightly into the soft tissues in the floor of the right nasal passageway.Electronically signed by: Familia Moyer (Dec 19, 2019 15:37:36)
[2019-12-19] MEDS ORDERED: FLEXERIL TAB 10 MG PO PRN (16:38)
[2019-12-19] MEDS ORDERED: VENTOLIN or PROAIR HFA IN PRN (16:38)
[2019-12-19] MEDS ORDERED: TUSSIONEX PENNKINETIC SUSP PO PRN (16:38)
[2019-12-19] MEDS ORDERED: DUONEB 0.5 MG/3 MG (3 mL) NEB ONE (16:57)
[2019-12-19] MEDS: DUONEB 0.5 MG/3 MG (3 mL) NEB SCH (17:25)
[2019-12-19 17:42] VITALS: BMI 33.8
[2019-12-19] MEDS ORDERED: AFLURIA II4 or FLUARIX II4 IM ONE (17:42)
[2019-12-19] MEDS ORDERED: PREVNAR 13 IM ONE (17:42)
[2019-12-19] MEDS: ROCEPHIN VIAL 1 GRAM 1 G in NS 100 ML IV + SPIKE MINIBAG* 100 ML IV SCH (17:54)
[2019-12-19] MEDS: ZOSYN VIAL 3.375 GRAMS 3.375 G in NS 100 ML IV + SPIKE MINIBAG* 100 ML IV SCH ×2 (18:00→21:25)
[2019-12-19] MEDS: PHENERGAN TAB 25 MG PO SCH (18:00)
[2019-12-19] MEDS: ROBITUSSIN DM PO SCH ×2 (18:00→21:25)
--- NOTE | 2019-12-19 18:51 | CT ---
HISTORYABD PAINSTUDYCT ABDOMEN/PELVIS without IV contrastCOMPARISONX-ray 12/17/[address] 10/05/2019TECHNIQUEMultiple axial images of the abdomen and pelvis were obtained from the lung bases to the pubic symphysis without the administration of IV contrast. Dose reduction techniques including Automated Exposure Control (AEC) and adjustment of mA and kV were utilized.FINDINGSThe visualized portions of the lung bases reveal new tiny pleural effusions. Persistent infiltrative density is seen in the right lung base with possible involvement of the left lung base being new since prior study. Findings could be due to organizing pneumonia but infiltrative malignancy is not excluded.The liver and spleen display no abnormalities.Prior cholecystectomy. No biliary ductal dilation.No pancreatic abnormality is seen.The adrenal glands appear normal.Extrarenal pelvis is seen on the right. No nephrolithiasis or hydronephrosis is seen. Phleboliths are seen in the pelvis. No ureteral stones are seen. A small amount of air is seen in the urinary bladder which is probably from prior catheterization.Likely mild constipation and diarrhea in the right-side of the colon. No small bowel abnormalities are seen. Prior appendectomy.No adnexal masses are seen.Abdominal aorta is normal in size.No suspicious lymphadenopathy.Trace free pelvic fluid.No acute bony abnormality is seen. Postoperative changes are seen in the lumbar spine.IMPRESSIONPersistent infiltrative density in the right CP angle with possible new mild interstitial and alveolar infiltrative densities in the left lower lung. Findings could be due to organizing pneumonia but malignancy is not completely excluded.Likely mixture of diarrhea and constipation in the right-side of the colon. No evidence of colitis or small bowel abnormality is identified.Electronically signed by: Familia Moyer (Dec 19, 2019 18:51:14)
[2019-12-19] MEDS ORDERED: PATIENT'S HOME MEDICATION (Budesonide-Formoterol 2 PUFF) IN SCH (21:00)
[2019-12-19] MEDS: SINGULAIR TAB 10 MG PO SCH (21:23)
[2019-12-19] MEDS: ABILIFY PO SCH (21:24)
[2019-12-19] MEDS: DESYREL PO SCH (21:24)
[2019-12-19] MEDS: NEURONTIN CAP 400 MG PO SCH (21:24)
[2019-12-19] MEDS: ZYLOPRIM PO SCH (21:24)
[2019-12-19] MEDS: PULMICORT NEB TX 0.5 MG NEB SCH (21:32)
[2019-12-20] MEDS: DUONEB 0.5 MG/3 MG (3 mL) NEB SCH ×4 (00:46→17:05)
[2019-12-20] MEDS: PHENERGAN TAB 25 MG PO SCH ×3 (04:45→18:29)
[2019-12-20] MEDS: ZOSYN VIAL 3.375 GRAMS 3.375 G in NS 100 ML IV + SPIKE MINIBAG* 100 ML IV SCH ×3 (05:07→21:55)
[2019-12-20 05:18] LABS: BASOPHILS % (AUTO) 0.3 % (0.2-1.0); EOSINOPHILS # (AUTO) 0.4 x10^3/uL (0.0-0.2); EOSINOPHILS % (AUTO) 6.7 % (0.9-2.9); HEMATOCRIT 27.1 % (36.0-47.0); HEMOGLOBIN 8.9 g/dL (12.0-16.0); LYMPHOCYTES # (AUTO) 2.1 X10^3/uL (1.3-2.9); LYMPHOCYTES % (AUTO) 32.4 % (21.0-51.0); MEAN CORPUSCULAR HEMOGLOBIN 28.2 pg (27.0-34.0); MEAN CORPUSCULAR HGB CONC 32.9 g/dL (33.0-35.0); MEAN CORPUSCULAR VOLUME 85.8 fL (80.0-100.0); MEAN PLATELET VOLUME 7.6 fL (7.4-11.0); MONOCYTES # (AUTO) 0.8 x10^3/uL (0.3-0.8); NEUTROPHILS # (AUTO) 3.1 x10^3/uL (2.2-4.8); NEUTROPHILS % (AUTO) 47.6 % (42.0-75.0); PLATELET COUNT 245 X10^3/uL (150.0-450.0); RED BLOOD COUNT 3.16 X10^6/uL (3.5-5.4); RED CELL DISTRIBUTION WIDTH 20.3 % (11.6-16.5); WHITE BLOOD COUNT 6.5 X10^3/uL (3.6-10.0)
[2019-12-20 05:41] LABS: ALANINE AMINOTRANSFERASE 21 Units/L (12-78); ALBUMIN 2.7 g/dL (3.4-5.0); ALKALINE PHOSPHATASE 62 Units/L (46-116); ASPARTATE AMINO TRANSFERASE 18 Units/L (15-37); BLOOD UREA NITROGEN 9 mg/dL (7-18); CALCIUM 8.1 mg/dL (8.5-10.1); CARBON DIOXIDE 24.6 mmol/L (21-32); CHLORIDE 107 mmol/L (98-107); COR CA(FOR HYPOALB) 9.1 mg/dL (8.5-10.1); SODIUM 141 mmol/L (136-145); TOTAL PROTEIN 6.4 g/dL (6.4-8.2); eGFR NON BLACK RACES 59 (>60)
[2019-12-20 06:07] LABS: ANISOCYTOSIS 1+; PLATELET MORPHOLOGY COMMENT NORMAL (NORMAL)
[2019-12-20] MEDS: PULMICORT NEB TX 0.5 MG NEB SCH ×2 (08:55→21:30)
[2019-12-20] MEDS ORDERED: PREDNISONE TAB 20 MG PO SCH (09:00)
[2019-12-20] MEDS ORDERED: PATIENT'S HOME MEDICATION (Dexlansoprazole [Dexilant] 60 MG) PO SCH (09:00)
[2019-12-20] MEDS ORDERED: MULTIVITAMIN IRON FOLIC ACID PO SCH (09:00)
[2019-12-20] MEDS ORDERED: PROTONIX TAB 40 MG PO SCH (09:00)
[2019-12-20] MEDS: NEURONTIN CAP 400 MG PO SCH ×2 (09:22→20:37)
[2019-12-20] MEDS: ROCEPHIN VIAL 1 GRAM 1 G in NS 100 ML IV + SPIKE MINIBAG* 100 ML IV SCH (09:23)
[2019-12-20] MEDS: ROBITUSSIN DM PO SCH ×4 (09:23→20:36)
[2019-12-20] MEDS: ZYLOPRIM PO SCH ×2 (09:24→20:37)
[2019-12-20] MEDS: EFFEXOR XR 150 MG CAP 24-HR PO SCH (09:33)
[2019-12-20] MEDS: TAB-A-VITE PO SCH (09:34)
[2019-12-20] MEDS: PROTONIX TAB 40 MG PO SCH (09:34)
[2019-12-20] MEDS: VSL#3 PO SCH (09:35)
[2019-12-20] MEDS: ZESTRIL TAB 40 MG PO SCH (09:35)
[2019-12-20] MEDS ORDERED: CITROMA PO ONE (09:42)
[2019-12-20] MEDS ORDERED: COLACE CAP 100 MG PO SCH (10:00)
[2019-12-20] MEDS: NORVASC TAB 5 MG PO SCH (11:00)
[2019-12-20] MEDS ORDERED: CITROMA ONE (15:42)
[2019-12-20] MEDS: K-DUR TAB 20 MEQ PO SCH (18:27)
[2019-12-20] MEDS: SINGULAIR TAB 10 MG PO SCH (20:36)
[2019-12-20] MEDS: ABILIFY PO SCH (20:36)
[2019-12-20] MEDS: DESYREL PO SCH (20:37)
[2019-12-21] MEDS: PHENERGAN TAB 25 MG PO SCH ×3 (00:35→17:30)
[2019-12-21] MEDS: DUONEB 0.5 MG/3 MG (3 mL) NEB SCH ×4 (01:46→18:00)
[2019-12-21] MEDS: ZOSYN VIAL 3.375 GRAMS 3.375 G in NS 100 ML IV + SPIKE MINIBAG* 100 ML IV SCH ×3 (05:02→21:26)
[2019-12-21 05:04] LABS: BASOPHILS % (AUTO) 0.2 % (0.2-1.0); EOSINOPHILS # (AUTO) 0.1 x10^3/uL (0.0-0.2); EOSINOPHILS % (AUTO) 0.8 % (0.9-2.9); HEMATOCRIT 28.6 % (36.0-47.0); HEMOGLOBIN 9.5 g/dL (12.0-16.0); LYMPHOCYTES # (AUTO) 1.2 X10^3/uL (1.3-2.9); LYMPHOCYTES % (AUTO) 17.2 % (21.0-51.0); MEAN CORPUSCULAR HEMOGLOBIN 28.4 pg (27.0-34.0); MEAN CORPUSCULAR HGB CONC 33.4 g/dL (33.0-35.0); MEAN CORPUSCULAR VOLUME 85.2 fL (80.0-100.0); MEAN PLATELET VOLUME 7.5 fL (7.4-11.0); MONOCYTES # (AUTO) 0.8 x10^3/uL (0.3-0.8); MONOCYTES % (AUTO) 12.1 % (0.0-13.0); NEUTROPHILS # (AUTO) 4.8 x10^3/uL (2.2-4.8); NEUTROPHILS % (AUTO) 69.7 % (42.0-75.0); PLATELET COUNT 266 X10^3/uL (150.0-450.0); RED BLOOD COUNT 3.35 X10^6/uL (3.5-5.4); RED CELL DISTRIBUTION WIDTH 20.2 % (11.6-16.5); WHITE BLOOD COUNT 6.8 X10^3/uL (3.6-10.0)
[2019-12-21 05:17] LABS: ALANINE AMINOTRANSFERASE 20 Units/L (12-78); ALBUMIN 2.8 g/dL (3.4-5.0); ALKALINE PHOSPHATASE 64 Units/L (46-116); ASPARTATE AMINO TRANSFERASE 16 Units/L (15-37); BLOOD UREA NITROGEN 12 mg/dL (7-18); CALCIUM 8.5 mg/dL (8.5-10.1); CARBON DIOXIDE 27.8 mmol/L (21-32); CHLORIDE 105 mmol/L (98-107); COR CA(FOR HYPOALB) 9.5 mg/dL (8.5-10.1); COR NA(FOR HYPERGLY) 142 mmol/L (136-145); CREATININE 1.02 mg/dL (0.55-1.02); MAGNESIUM 1.3 mg/dL (1.7-2.9); SODIUM 142 mmol/L (136-145); TOTAL PROTEIN 6.8 g/dL (6.4-8.2); eGFR NON BLACK RACES 57 (>60)
[2019-12-21 05:37] LABS: ANISOCYTOSIS 1+; PLATELET MORPHOLOGY COMMENT NORMAL (NORMAL)
--- NOTE | 2019-12-21 05:55 | RAD ---
HISTORYAbdominal painSTUDYAcute abdominal [id number]/03/2020FINDINGSThe heart is within normal limits in size. The true are normal. The lungs are well inflated. No definite residual infiltrates remain. The abdominal gas pattern is nonspecific and nonobstructive. No pneumoperitoneum is identified. No abnormal masses or abnormal calcifications are identified.IMPRESSIONLungs now clearNonspecific bowel gas patternElectronically signed by: KAREN FELICIANO (Dec 21, 2019 05:54:40)
[2019-12-21] MEDS: PULMICORT NEB TX 0.5 MG NEB SCH ×2 (09:15→21:50)
[2019-12-21] MEDS: TAB-A-VITE PO SCH (10:00)
[2019-12-21] MEDS: EFFEXOR XR 150 MG CAP 24-HR PO SCH (10:00)
[2019-12-21] MEDS: PROTONIX TAB 40 MG PO SCH (10:00)
[2019-12-21] MEDS: NORVASC TAB 5 MG PO SCH (10:00)
[2019-12-21] MEDS: ROCEPHIN VIAL 1 GRAM 1 G in NS 100 ML IV + SPIKE MINIBAG* 100 ML IV SCH (10:00)
[2019-12-21] MEDS: PREDNISONE TAB 20 MG PO SCH (10:00)
[2019-12-21] MEDS: NEURONTIN CAP 400 MG PO SCH ×2 (10:00→21:26)
[2019-12-21] MEDS: VSL#3 PO SCH (10:00)
[2019-12-21] MEDS: ZESTRIL TAB 40 MG PO SCH (10:00)
[2019-12-21] MEDS: K-DUR TAB 20 MEQ PO SCH (10:00)
[2019-12-21] MEDS: ROBITUSSIN DM PO SCH ×4 (10:00→21:26)
[2019-12-21] MEDS: ZYLOPRIM PO SCH ×2 (10:47→21:25)
[2019-12-21] MEDS: COLACE CAP 100 MG PO SCH ×2 (10:48→21:25)
[2019-12-21] MEDS ORDERED: PREVNAR 13 IM ONE (16:45)
[2019-12-21] MEDS ORDERED: AFLURIA II4 or FLUARIX II4 IM ONE (17:00)
[2019-12-21] MEDS: ABILIFY PO SCH (21:25)
[2019-12-21] MEDS: DESYREL PO SCH (21:26)
[2019-12-21] MEDS: SINGULAIR TAB 10 MG PO SCH (21:27)
[2019-12-22] MEDS: DUONEB 0.5 MG/3 MG (3 mL) NEB SCH ×2 (00:31→06:50)
[2019-12-22] MEDS: PHENERGAN TAB 25 MG PO SCH ×2 (01:00→10:32)
[2019-12-22] MEDS: ZOSYN VIAL 3.375 GRAMS 3.375 G in NS 100 ML IV + SPIKE MINIBAG* 100 ML IV SCH (06:18)
[2019-12-22] MEDS ORDERED: LINZESS PO SCH (09:00)
[2019-12-22] MEDS: COLACE CAP 100 MG PO SCH (10:30)
[2019-12-22] MEDS: ROBITUSSIN DM PO SCH (10:31)
[2019-12-22] MEDS: TAB-A-VITE PO SCH (10:31)
[2019-12-22] MEDS: EFFEXOR XR 150 MG CAP 24-HR PO SCH (10:32)
[2019-12-22] MEDS: K-DUR TAB 20 MEQ PO SCH (10:32)
[2019-12-22] MEDS: NEURONTIN CAP 400 MG PO SCH (10:33)
[2019-12-22] MEDS: NORVASC TAB 5 MG PO SCH (10:33)
[2019-12-22] MEDS: PROTONIX TAB 40 MG PO SCH (10:34)
[2019-12-22] MEDS: PREDNISONE TAB 20 MG PO SCH (10:34)
[2019-12-22] MEDS: VSL#3 PO SCH (10:34)
[2019-12-22] MEDS: ZESTRIL TAB 40 MG PO SCH (10:34)
[2019-12-22] MEDS: ZYLOPRIM PO SCH (10:35)
[2019-12-22] MEDS: PULMICORT NEB TX 0.5 MG NEB SCH (10:35)
[2019-12-22] MEDS: ROCEPHIN VIAL 1 GRAM 1 G in NS 100 ML IV + SPIKE MINIBAG* 100 ML IV SCH (12:06)
[2019-12-22 12:17] VITALS: BP 184/93
== END 2019-12-22 13:05 | disposition home health service (06) ==
LOC: MED/SURG 09:35 → ER 09:35 → MED/SURG 16:15
PROVIDERS: ADMIT Obstetrics & Gynecology Obstetrics; ATTEND Obstetrics & Gynecology Obstetrics
DX: R53.1 Weakness; Z23 Encounter for immunization; Z79.899 Other long term (current) drug therapy; K59.09 Other constipation; R10.84 Generalized abdominal pain; I10 Essential (primary) hypertension; J44.9 Chronic obstructive pulmonary disease, unspecified; Z20.828 Contact with and (suspected) exposure to other viral communicable diseases; E87.6 Hypokalemia